=== PATIENT | male | born 1980 | race Two or more races ===

== ENCOUNTER → 2023-09-30 | Outpatient (CLI) | payer BC ==
[2023-09-30 08:56] LABS: Basophils # (auto) 0.1 10 ^3/uL (0-0.2); Eosinophils # (auto) 0.2 10 ^3/uL (0-0.8); Eosinophils % (auto) 3.6 % (0.0-7.0); Hematocrit 44.1 % (41.0-53.0); Hemoglobin 15.4 g/dL (13.5-17.5); Lymphocytes % (auto) 30.8 % (10.0-50.0); Mean Corpuscular Hemoglobin 32.1 pg (28.0-32.0); Mean Corpuscular Volume 91.8 fL (80.0-100.0); Monocytes # (auto) 0.6 10 ^3/uL (0-1.3); Monocytes % (auto) 10.2 % (0.0-12.0); Neutrophils # (auto) 3.5 10 ^3/uL (1.6-8.6); Neutrophils % (auto) 54.4 % (37.0-80.0); Nucleated Red Blood Cells % 0.1 %; Red Blood Cells 4.81 10^6/uL (4.5-5.90); Red Cell Distribution Width 13.2 % (11.8-14.3); White Blood Cell 6.4 10^3/uL (4.4-10.8)
[2023-09-30 09:05] LABS: Urine Bacteria NONE SEEN /hpf (None Seen); Urine Blood Negative /uL (Negative); Urine Clarity Clear (Clear); Urine Color Yellow (Yellow); Urine Protein, UAD Negative (Negative); Urine Specific Gravity 1.011 (1.001-1.035); Urine Urobilinogen Normal (Negative); Urine WBC 2 /hpf (0 - 3); Urine pH 6.5 (5.0-8.0)
[2023-09-30 09:26] LABS: Alanine Aminotransferase 17 U/L (7-40); Albumin 4.5 g/dL (3.2-4.8); Alkaline Phosphatase 66 U/L (46-116); Anion Gap 7 (5-15); Aspartate Aminotransferase 19 U/L (13-40); BUN/Creatinine Ratio 9.2 (10.0-20.0); Blood Urea Nitrogen 9 mg/dL (9-23); Calcium 9.9 mg/dL (8.5-10.1); Carbon Dioxide 29 mmol/L (20-30); Chloride 104 mmol/L (98-107); Cholesterol 179 mg/dL (< 200); Glucose 88 mg/dL (74-106); HDL Cholesterol 52 mg/dL (40-59); LDL Cholesterol 120 mg/dL (< 100); Potassium 4.3 mmol/L (3.5-5.1); Sodium 140 mmol/L (136-145); Triglycerides 76 mg/dL (< 150)
[2023-09-30 09:27] LABS: Bilirubin, Total 0.7 mg/dL (0.2-1.0); Total Protein 7.1 g/dL (5.7-8.2)
[2023-09-30 10:53] LABS: Free T4 (Free Thyroxine) 1.24 ng/dL (0.89-1.76); T3 Total 0.98 ng/mL (0.60-1.81)
== END | disposition home or self-care (01) ==
LOC: LAB 08:18
PROVIDERS: ATTEND Nurse Practitioner Gerontology
DX: Z00.01 Encounter for general adult medical examination with abnormal findings (principal)
CPT/HCPCS: 36415; 80053; 80061; 81001; 83036; 84439; 84443; 84480; 85025

== ENCOUNTER → 2024-09-14 | Outpatient (CLI) | payer BC ==
[2024-09-14 08:56] LABS: Basophils # (auto) 0.1 10 ^3/uL (0-0.2); Basophils % (auto) 1.4 % (0.0-2.0); Eosinophils # (auto) 0.2 10 ^3/uL (0-0.8); Eosinophils % (auto) 3.7 % (0.0-7.0); Hematocrit 45.1 % (41.0-53.0); Hemoglobin 15.6 g/dL (13.5-17.5); Lymphocytes # (auto) 1.5 10 ^3/uL (0.4-5.4); Lymphocytes % (auto) 30.5 % (10.0-50.0); Mean Corpuscular Hemoglobin 31.7 pg (28.0-32.0); Mean Corpuscular Hgb Conc. 34.5 g/dL (32.0-36.0); Mean Corpuscular Volume 91.7 fL (80.0-100.0); Monocytes # (auto) 0.6 10 ^3/uL (0-1.3); Monocytes % (auto) 12.5 % (0.0-12.0); Neutrophils # (auto) 2.5 10 ^3/uL (1.6-8.6); Neutrophils % (auto) 51.9 % (37.0-80.0); Nucleated Red Blood Cells % 0.3 %; Platelet Count (auto) 268 10^3/uL (140-450); Red Blood Cells 4.92 10^6/uL (4.5-5.90); White Blood Cell 4.9 10^3/uL (4.4-10.8)
[2024-09-14 09:08] LABS: Urine Bacteria None Seen /hpf (None Seen); Urine Blood Negative /uL (Negative); Urine Clarity Clear (Clear); Urine Color Light-Yellow (Yellow); Urine Protein, UAD Negative (Negative); Urine Specific Gravity 1.008 (1.001-1.035); Urine Squamous Epithelial Cell None Seen /hpf (<5); Urine Urobilinogen Normal (Negative); Urine pH 6.5 (5.0-9.0)
[2024-09-14 09:37] LABS: Alanine Aminotransferase 13 U/L (7-40); Albumin 4.7 g/dL (3.2-4.8); Alkaline Phosphatase 72 U/L (46-116); Anion Gap 6 (5-15); Aspartate Aminotransferase 17 U/L (13-40); BUN/Creatinine Ratio 12.2 (10.0-20.0); Bilirubin, Total 0.6 mg/dL (0.2-1.0); Blood Urea Nitrogen 14 mg/dL (9-23); Carbon Dioxide 29 mmol/L (20-31); Chloride 102 mmol/L (98-107); Cholesterol 158 mg/dL (< 200); Glucose 96 mg/dL (74-106); HDL Cholesterol 44 mg/dL (40-59); Potassium 4.7 mmol/L (3.5-5.1); Sodium 137 mmol/L (136-145); Total Protein 7.6 g/dL (5.7-8.2); Triglycerides 71 mg/dL (< 150)
[2024-09-14 09:40] LABS: LDL Cholesterol 107 mg/dL (< 100)
== END | disposition home or self-care (01) ==
LOC: LAB 08:10
PROVIDERS: ATTEND Internal Medicine
DX: Z13.1 Encounter for screening for diabetes mellitus (principal); Z00.01 Encounter for general adult medical examination with abnormal findings; K51.90 Ulcerative colitis, unspecified, without complications
CPT/HCPCS: 36415; 80053; 80061; 81001; 83036; 84439; 84443; 85025

== ENCOUNTER 2025-01-03 07:30 | Day surgery (SDC) | payer BC ==
[2024-12-28 12:26] LABS: Basophils # (auto) 0.1 10 ^3/uL (0-0.2); Basophils % (auto) 0.9 % (0.0-2.0); Eosinophils # (auto) 0.2 10 ^3/uL (0-0.8); Eosinophils % (auto) 3.2 % (0.0-7.0); Hematocrit 44.4 % (41.0-53.0); Hemoglobin 15.4 g/dL (13.5-17.5); Lymphocytes # (auto) 1.5 10 ^3/uL (0.4-5.4); Lymphocytes % (auto) 22.3 % (10.0-50.0); Mean Corpuscular Hgb Conc. 34.8 g/dL (32.0-36.0); Mean Corpuscular Volume 91.9 fL (80.0-100.0); Monocytes # (auto) 0.7 10 ^3/uL (0-1.3); Monocytes % (auto) 10.2 % (0.0-12.0); Neutrophils # (auto) 4.2 10 ^3/uL (1.6-8.6); Neutrophils % (auto) 63.4 % (37.0-80.0); Nucleated Red Blood Cells % 0.1 %; Platelet Count (auto) 259 10^3/uL (140-450); Red Blood Cells 4.83 10^6/uL (4.5-5.90); Red Cell Distribution Width 13.1 % (11.8-14.3); White Blood Cell 6.6 10^3/uL (4.4-10.8)
[2024-12-28 12:37] LABS: INR 1.03 (0.9-1.15); Partial Thromboplastin Time 30.4 SEC (24.5-34.5); Prothrombin Time 10.9 sec (9.3-11.8)
[2024-12-28 12:46] LABS: Alanine Aminotransferase 12 U/L (7-40); Albumin 4.7 g/dL (3.2-4.8); Alkaline Phosphatase 76 U/L (46-116); Anion Gap 7 (5-15); BUN/Creatinine Ratio 11.9 (10.0-20.0); Bilirubin, Total 0.6 mg/dL (0.2-1.0); Blood Urea Nitrogen 13 mg/dL (9-23); Calcium 9.5 mg/dL (8.7-10.4); Carbon Dioxide 31 mmol/L (20-31); Chloride 103 mmol/L (98-107); Glucose 92 mg/dL (74-106); Potassium 4.8 mmol/L (3.5-5.1); Sodium 141 mmol/L (136-145); Total Protein 7.5 g/dL (5.7-8.2)
[2024-12-28 12:49] LABS: Aspartate Aminotransferase 10 U/L (13-40)
[~2025-01-03] VITALS: Ht 185.4 cm; Wt 106.6 kg
[~2025-01-03 07:30] MED LIST: MERC50TA PO; SERT25TA28 PO; SULF500T57 PO
[2025-01-03] MEDS ORDERED: SODIUM CHLORIDE LOCK 10 ML ONE (08:23)
[2025-01-03] MEDS ORDERED: NALOXONE HCL 0.4 MG/ML VIAL ONE (08:24)
[2025-01-03] MEDS ORDERED: FLUMAZENIL 0.1 MG/ML INJ 10ML MDV IV ONE (08:24)
[2025-01-03 08:39] VITALS: PULSE 70; RESP 16; O2SAT 98
[2025-01-03] MEDS: fentaNYL CITRATE 100 MCG/2 ML VL ONE ×2 (08:42→08:53)
[2025-01-03] MEDS: MIDAZOLAM HCL 5 MG/ML-1ML VIAL ONE (08:42)
[2025-01-03] MEDS: diphenhdrAMINE HCL 50 MG/1 ML VL ONE (08:46)
[2025-01-03] MEDS: MIDAZOLAM HCL 2MG/2ML 2ml VIAL (1mg/ml) ONE (09:13)
[2025-01-03 09:28] VITALS: PULSE 135; RESP 13; TEMP 98.5; O2SAT 99
--- NOTE | 2025-01-03 09:41 | DVHOP2 ---
Operative Report DATE OF PROCEDURE: 01/03/25 INDICATIONS FOR THE PROCEDURE: History of colitis for ulcerative colitis on sulfasalazine for follow-up PROCEDURE PERFORMED: Colonoscopy and biopsy with cold biopsy forceps of multiple areas of the colon and terminal ileum POSTOPERATIVE DIAGNOSIS: Ulcerative colitis with involvement of most of the colon especially the transverse descending and sigmoid colons with pseudo polypoid changes A larger pseudo polypoid lesions seen in mid descending colon biopsies taken The rectum is relatively spared spent Anal tags INFORMED CONSENT: The risks and benefits and alternatives were explained to the patient and informed consent was obtained. PROCEDURE IN DETAIL: DATE OF OPERATION: 01/03/25 PROCEDURE: Colonoscopy and biopsy PROCEDURE PERFORMED BY: Daniel Jean-Baptiste MD , M.D. SCOPE: Olympus videocolonoscope. ASA CLASS:2 PREOPERATIVE MEDICATIONS: Versed 6 mg mg, Fentanyl 150 mcg, Benadryl 50 mg PROCEDURE IN DETAIL: The patient was kept NPO after midnight and clear liquids and laxatives as an outpatient An informed consent was obtained as an outpatient After preop evaluation,Conscious sedation was given with 150 mcg fentanyl 6 mg of Versed and 50 mg of Benadryl Olympus colonoscope was passed through the rectum all the way up to cecum and up to 6 cm into the terminal ileum. The terminal ileum Cecum, ascending colon, hepatic flexure, transverse colon, splenic flexure, descending colon, and sigmoid colon were all visualized and the findings were as follows: Findings: The terminal ileum was normal but biopsies taken to ensure there was no occult inflammatory bowel disease The cecum and ascending colon were unremarkable but biopsies taken to ensure there was no occult inflammatory bowel disease There there was evidence of severe chronic colitis changes with pseudo polypoid changes with small superficial ulcerations and erythema consistent with chronic colitis possibly ulcerative in the transverse descending and sigmoid colons Multiple biopsies were taken from different areas of the colon to evaluate the colitis In the mid descending colon there was a 1.5 cm pseudo polypoid lesion with erythema nonbleeding multiple biopsies were taken with cold biopsy forceps Multiple biopsies were taken from different areas especially the pseudo polypoid changes as well as the normal mucosa in between No large ulcers or mass lesions There were some erythematous changes in the distal descending as well as sigmoid colon but no gross acute colitis and multiple biopsies were taken The rectum was relatively normal looking biopsies taken from the rectum to ensure there is no occult The anal area there were anal tags seen no fissures fistula or hemorrhoids seen ENDOSCOPIC IMPRESSION: Ulcerative colitis with pseudo polypoid changes involving the most of the colon especially the transverse descending as well as sigmoid colons Terminal ileum and the cecum as well as the rectum were relatively spared Anal tags SUGGESTIONS: Await the biopsy results Inflammatory bowel disease studies C-reactive protein Depending upon the biopsy may need further treatment as needed Thank you Dr. Ocampo for asking me to take part in the care of this pleasant patient DANIEL Ly MD January 03, 2025 09:41
[2025-01-03 09:55] VITALS: BP 130/84; PULSE 57; RESP 15; O2SAT 97
== END 2025-01-03 10:05 | disposition home or self-care (01) ==
LOC: GI 07:30
PROVIDERS: ATTEND Internal Medicine Gastroenterology
DX: K62.5 Hemorrhage of anus and rectum (principal); K51.90 Ulcerative colitis, unspecified, without complications; K64.4 Residual hemorrhoidal skin tags; K51.40 Inflammatory polyps of colon without complications
CPT/HCPCS: 36415; 45380; 80053; 85025; 85610; 85730; 88305; J1200; J2250; J3010; J7030

== ENCOUNTER 2025-02-16 12:17 | Outpatient (CLI) | payer BC | END 2025-02-16 17:00 | disposition home or self-care (01) | LOC: LAB 12:17 | PROVIDERS: ATTEND Family Medicine | DX: L72.3 Sebaceous cyst (principal) ==

== ENCOUNTER → 2025-03-09 | Outpatient (CLI) | payer BC | END | disposition home or self-care (01) | LOC: LAB 11:51 | PROVIDERS: ATTEND Family Medicine | DX: D21.9 Benign neoplasm of connective and other soft tissue, unspecified (principal) ==